=== PATIENT | female | born 1975 | race Caucasian/White ===

== ENCOUNTER 2024-01-17 13:19 | Outpatient (CLI) | payer MEDICARE, MEDICAID ==
--- NOTE | 2024-01-17 15:44 | XRAY Report ---
PROCEDURE: Chest 2V INDICATIONS: COUGH TECHNIQUE: 2 views of the chest were acquired. COMPARISON: None. FINDINGS: Surgical changes and devices: None. Lungs and pleura: No pleural effusions or pneumothorax. Lungs are clear. Mediastinum: Mediastinal contours appear normal. Heart size is normal. Bones and chest wall: No suspicious bony lesions. Overlying soft tissues appear unremarkable. IMPRESSION: No acute cardiopulmonary process. Reviewed by: Manisha Thorpe MD on 01/17/2024 3:42 PM PST Approved by: Manisha Thorpe MD on 01/17/2024 3:42 PM PST Station ID: [id number]
== END 2024-01-17 23:59 | disposition home or self-care (01) ==
LOC: DI.N 13:19
PROVIDERS: ATTEND Family Medicine
DX: R05.9 Cough, unspecified (principal)

== ENCOUNTER 2024-01-18 02:20 | Outpatient (CLI) | payer MEDICARE, MEDICAID | END 2024-01-18 02:21 | disposition critical access hospital (66) | LOC: EMS 02:20 | DX: R45.851 Suicidal ideations (principal) | CPT/HCPCS: A0425; A0429; A0999 ==

== ENCOUNTER 2024-01-18 02:38 | Emergency (ER) | payer MEDICARE, MEDICAID ==
[2024-01-18 03:09] VITALS: BP 145/104; O2SAT 98
[2024-01-18 03:36] LABS: BILIRUBIN,URINE NEGATIVE (NEGATIVE); GLUCOSE, URINE (UA) NEGATIVE (NEGATIVE); KETONES,URINE (UA) NEGATIVE (NEGATIVE); LEUKOCYTE ESTERASE, URINE NEGATIVE (NEGATIVE); NITRITE,URINE NEGATIVE (NEGATIVE); OCCULT BLOOD,URINE SMALL (NEGATIVE); PROTEIN,URINE NEGATIVE (NEGATIVE); UROBILINOGEN,URINE 0.2 (NORMAL) E.U./dL (NORMAL)
[2024-01-18 03:41] LABS: BASOPHILS % (AUTO) 0.3 %; HCT - HEMATOCRIT 39.7 % (37.0-47.0); HGB - HEMOGLOBIN 13.1 g/dL (12.0-16.0); LYMPHOCYTES # (AUTO) 0.6 10^3/uL (1.5-3.5); LYMPHOCYTES % (AUTO) 9.6 %; MEAN CORPUSCULAR HEMOGLOBIN 31.4 pg (27.0-31.0); MEAN CORPUSCULAR VOLUME 95.2 fL (81.0-99.0); MEAN PLATELET VOLUME 8.2 fL (7.9-10.8); MONOCYTES % (AUTO) 0.5 %; NEUTROPHILS # (AUTO) 5.2 10^3/uL (1.5-6.6); NEUTROPHILS % (AUTO) 89.4 %; PLT - PLATELET COUNT 328 10^3/uL (130-450); RED BLOOD COUNT 4.17 10^6/uL (4.20-5.40); WHITE BLOOD COUNT 5.9 x10^3/uL (4.8-10.8)
[2024-01-18 03:48] LABS: CLARITY,URINE CLEAR (CLEAR)
[2024-01-18 03:49] LABS: BACTERIA,URINE Rare /HPF (None Seen); RBC,URINE 0-5 /HPF (0-5); SQUAMOUS EPITHELIAL CELL,UR FEW Squamous (<= Few); WBC,URINE 0-3 /HPF (0-5)
[2024-01-18 03:50] LABS: AMPHETAMINE SCREEN,URINE NEGATIVE (NEGATIVE); BARBITURATE SCREEN,UR NEGATIVE (NEGATIVE); BENZODIAZEPINES SCREEN, URINE NEGATIVE (NEGATIVE); BUPRENORPHINE SCREEN, URINE NEGATIVE (NEGATIVE); COCAINE SCREEN URINE NEGATIVE (NEGATIVE); METHADONE SCREEN, URINE NEGATIVE (NEGATIVE); METHAMPHETAMINES SCREEN, URINE NEGATIVE (NEGATIVE); OPIATE SCREEN, URINE NEGATIVE (NEGATIVE); OXYCODONE SCREEN, URINE NEGATIVE (NEGATIVE); THC CANNABINOID SCREEN, URINE NEGATIVE (NEGATIVE); TRICYCLIC ANTIDEPRESSANT,URINE NEGATIVE (NEGATIVE)
[2024-01-18 03:50] LABS: HCG UR QUAL NEGATIVE
--- NOTE | 2024-01-18 03:56 | ED Physician Documentation ---
History of Present Illness - Stated complaint Stated Complaint: SI/ETOH - Chief complaint Chief Complaint: MHE - History obtained from History obtained from: Patient - Additonal information Additional information: HPI from patient. Patient has been drinking alcohol (vodka) throughout the day and evening. She tells me she is an alcoholic and suffers from depression. She had a lengthy period of sobriety with brief relapse this past September. Early today she was seen in outpatient clinic for sinusitis, was prescribed a number of medications including Augmentin and an albuterol MDI, and , per her description, it sounds like she also received IM steroid. Shortly after this clinic visit, she began drinking vodka. Tonight she had brief, vague thoughts of self-harm without specific plan. She tells me she never had any intent of self-harm, only vague thoughts. She says she no longer is even having thoughts of suicide. 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 : None HEENT: None Psych: Depression Musculoskeletal: None Derm: None - Past Surgical History Past Surgical History: Yes General: Cholecystectomy, Appendectomy, Gastric surgery Ortho: Other - Allergies Allergies/Adverse Reactions: Allergies Allergy/AdvReac Type Severity Reaction Status Date / Time NSAIDS (Non-Steroidal AdvReac Unknown Verified 01/18/24 03:03 Anti-Inflamma - Social History Does the pt smoke?: Yes Smoking Status: Current every day smoker Does the pt drink ETOH?: Yes ETOH Use: Liquor Does the pt have substance abuse?: Yes Substance Use and Type: Other PD ED PE NORMAL - Vitals Vital signs reviewed: Yes - General General: Alert and oriented X 3, No acute distress, Well developed/nourished - HEENT HEENT: PERRL, EOMI - Cardiac Cardiac: RRR, No murmur - Respiratory Respiratory: No respiratory distress, Clear bilaterally - Abdomen Abdomen: Soft, Non tender - Derm Derm: Normal color, Warm and dry - Neuro Neuro: Alert and oriented X 3 Eye Opening: Spontaneous Motor: Obeys Commands Verbal: Oriented GCS Score: 15 - Psych Psych: Normal mood, Normal affect Results - Vitals Vitals: Oxygen O2 Source Room air - Labs Labs: Laboratory Tests 01/18/24 01/18/24 01/18/24 03:20 03:25 03:35 WBC 5.9 RBC 4.17 L Hgb 13.1 Hct 39.7 MCV 95.2 MCH 31.4 H MCHC 33.0 RDW 13.0 Plt Count 328 MPV 8.2 Neut # (Auto) 5.2 Lymph # (Auto) 0.6 L [place] # (Auto) 0.0 Eos # (Auto) 0.0 Baso # (Auto) 0.0 Absolute Nucleated RBC 0.00 Nucleated RBC % 0.0 Sodium Potassium Chloride Carbon Dioxide Anion Gap BUN Creatinine Estimated GFR (MDRD) Glucose Calcium Total Bilirubin AST ALT Alkaline Phosphatase Total Protein Albumin Globulin Albumin/Globulin Ratio Lipase TSH Urine Color YELLOW Urine Clarity CLEAR Urine pH 6.0 Ur Specific [place] <=1.005 Urine Protein NEGATIVE Urine Glucose (UA) NEGATIVE Urine Ketones NEGATIVE Urine Occult Blood SMALL H Urine Nitrite NEGATIVE Urine Bilirubin NEGATIVE Urine Urobilinogen 0.2 (NORMAL) Ur Leukocyte Esterase NEGATIVE Urine RBC 0-5 Urine WBC 0-3 Ur Squamous Epith Cells FEW Squamous Urine Bacteria Rare Ur Microscopic Review INDICATED Urine Culture Comments NOT INDICATED Urine HCG, Qual NEGATIVE Salicylates Urine Opiates Screen NEGATIVE Ur Buprenorphine Scrn NEGATIVE Ur Oxycodone Screen NEGATIVE Urine Methadone Screen NEGATIVE Acetaminophen Ur Barbiturates Screen NEGATIVE Ur Tricyclics Screen NEGATIVE Ur Phencyclidine Scrn NEGATIVE Ur Amphetamine Screen NEGATIVE U Methamphetamines Scrn NEGATIVE U Benzodiazepines Scrn NEGATIVE Urine Cocaine Screen NEGATIVE U Cannabinoids Screen NEGATIVE Ur Drug Screen Comment CUTOFF CONC BELOW: Ethyl Alcohol 01/18/24 03:35 WBC RBC Hgb Hct MCV MCH MCHC RDW Plt Count MPV Neut # (Auto) Lymph # (Auto) [place] # (Auto) Eos # (Auto) Baso # (Auto) Absolute Nucleated RBC Nucleated RBC % Sodium 142 Potassium 3.8 Chloride 108 Carbon Dioxide 21 Anion Gap 13.0 BUN 7 Creatinine 0.4 L Estimated GFR (MDRD) 169 Glucose 147 H Calcium 9.0 Total Bilirubin 0.2 AST 28 ALT 23 Alkaline Phosphatase 111 Total Protein 7.1 Albumin 4.0 Globulin 3.1 Albumin/Globulin Ratio 1.3 Lipase 46 TSH 0.30 L Urine Color Urine Clarity Urine pH Ur Specific [place] Urine Protein Urine Glucose (UA) Urine Ketones Urine Occult Blood Urine Nitrite Urine Bilirubin Urine Urobilinogen Ur Leukocyte Esterase Urine RBC Urine WBC Ur Squamous Epith Cells Urine Bacteria Ur Microscopic Review Urine Culture Comments Urine HCG, Qual Salicylates < 1.5 Urine Opiates Screen Ur Buprenorphine Scrn Ur Oxycodone Screen Urine Methadone Screen Acetaminophen 0.3 Ur Barbiturates Screen Ur Tricyclics Screen Ur Phencyclidine Scrn Ur Amphetamine Screen U Methamphetamines Scrn U Benzodiazepines Scrn Urine Cocaine Screen U Cannabinoids Screen Ur Drug Screen Comment Ethyl Alcohol 249.8 PD Medical Decision Making - ED course Complexity details: reviewed results, re-evaluated patient, considered differential, d/w patient ED course: Patient is calm, cooperative, polite, conversant, and appropriate. She has good insight into her alcoholism and depression, readily recognizing both of these issues. She says she attends AA meetings on a regular basis. She says there is no alcohol in the house at this point. She is able to contract for safety: states she will call 911 if she feels unsafe at home, able to provide collateral against self-harm (would not want to abandon family nor her pet). She declines , telepsych. I mentioned [facility] as an option if she is seeking inpatient treatment for addiction/alcoholism. No concerning findings on blood tests except a predictably elevated serum etoh (250). Remainder of blood tests including LFTs are unremarkable. Departure - Departure Disposition: Home, Self Care Clinical Impression: Alcoholic intoxication Qualifiers: Complication of substance-induced condition: uncomplicated Qualified Code(s): F10.920 - Alcohol use, unspecified with intoxication, uncomplicated Condition: Good Instructions: ED Alcohol Intoxication Comments: There were no concerning findings on tonight's blood tests except for high blood alcohol level. This should gradually decrease as your body processes the alcohol ( provided you do not drink more when you get home). You have indicated to me that you are no longer feeling suicidal/having thoughts of self-harm. If you feel unsafe at any time you should return to the emergency department for reevaluation. If you are desiring inpatient treatment for your alcoholism, one option you can consider is [facility]; this is a stabilization center located in [place]. The contact information is provided below. If you are considering this option, contact [facility] using the phone number below and they will do an [id number] interview to determine if you are appropriate for their facility. [facility] [address] [place] [address] Forms: PCP List Discharge Date/Time: 01/18/24 04:53
[2024-01-18 03:57] LABS: ACETAMINOPHEN 0.3 ug/mL; ALBUMIN/GLOBULIN RATIO 1.3 (1.0-2.2); ALKALINE PHOSPHATASE 111 IU/L (42-121); ALT ALANINE AMINOTRANSFERASE 23 IU/L (10-60); AST ASPARTATE AMINOTRANSFERASE 28 IU/L (10-42); BILIRUBIN,TOTAL 0.2 mg/dL (0.2-1.0); BUN - BLOOD UREA NITROGEN 7 mg/dL (6-20); CARBON DIOXIDE - CO2 21 mmol/L (21-32); CHLORIDE 108 mmol/L (101-111); CREATININE 0.4 mg/dL (0.6-1.3); ETOH - ETHANOL 249.8 mg/dL; GFR - MDRD 169 (>89); GLUCOSE 147 mg/dL (74-104); LIPASE 46 U/L (11-82); POTASSIUM 3.8 mmol/L (3.5-4.5); SODIUM 142 mmol/L (135-145); TOTAL PROTEIN 7.1 g/dL (6.4-8.9)
[2024-01-18 04:09] LABS: SALICYLATE < 1.5 mg/dL
== END 2024-01-18 04:53 | disposition home or self-care (01) ==
LOC: EDUNIT# → ED 02:38
DX: F10.920 Alcohol use, unspecified with intoxication, uncomplicated (principal); Y90.8 Blood alcohol level of 240 mg/100 ml or more; F17.200 Nicotine dependence, unspecified, uncomplicated; F32.A Depression, unspecified; Z79.899 Other long term (current) drug therapy
CPT/HCPCS: 36415; 80053; 80143; 80306; 81001; 81025; 83690; 84443; 85025; 99283; 99284; G0480; 80179; 81003; 82077; 87086

== ENCOUNTER 2024-01-31 14:42 | Outpatient (CLI) | payer MEDICARE, MEDICAID ==
--- NOTE | 2024-01-31 17:13 | XRAY Report ---
PROCEDURE: Wrist 3+V RT INDICATIONS: RIGHT WRIST PAIN TECHNIQUE: 3 views of the wrist were acquired. COMPARISON: None. FINDINGS: Bones: No fractures or dislocations. Mild right wrist joint osteoarthritic changes are seen more not ably involving first CMC joint and scaphotrapezial joint. No suspicious bony lesions. Soft tissues: No suspicious soft tissue calcifications or masses. IMPRESSION: No acute bony abnormality. Mild right wrist joint osteoarthritis.. Reviewed by: Ritesh Love MD on 01/31/2024 5:12 PM PDT Approved by: Ritesh Love MD on 01/31/2024 5:12 PM PDT Station ID: [id number]
== END 2024-01-31 14:43 | disposition home or self-care (01) ==
LOC: DI 14:42
PROVIDERS: ATTEND Family Medicine
DX: M19.031 Primary osteoarthritis, right wrist (principal)

== ENCOUNTER 2024-04-28 09:12 | Outpatient (CLI) | payer MEDICARE, MEDICAID ==
[2024-04-28 12:16] LABS: THYROID STIMULATING HORMONE 1.12 uIU/mL (0.34-5.60)
[2024-04-28 12:19] LABS: ALBUMIN 4.4 g/dL (3.2-5.5); ALBUMIN/GLOBULIN RATIO 1.5 (1.0-2.2); ALKALINE PHOSPHATASE 68 IU/L (42-121); ALT ALANINE AMINOTRANSFERASE 23 IU/L (10-60); AST ASPARTATE AMINOTRANSFERASE 26 IU/L (10-42); BILIRUBIN,TOTAL 0.5 mg/dL (0.2-1.0); BUN - BLOOD UREA NITROGEN 14 mg/dL (6-20); CALCIUM 9.8 mg/dL (8.5-10.3); CARBON DIOXIDE - CO2 25 mmol/L (21-32); CHLORIDE 106 mmol/L (101-111); CHOLESTEROL 197 mg/dL; CREATININE 0.6 mg/dL (0.6-1.3); GFR - MDRD 105 (>89); GLUCOSE 88 mg/dL (74-104); HDL CHOLESTEROL 66 mg/dL; LDL CHOLESTEROL,CALCULATED 109 mg/dL; LDL/HDL RATIO 1.7 (<4.4); POTASSIUM 4.1 mmol/L (3.5-4.5); SODIUM 138 mmol/L (135-145); TOTAL PROTEIN 7.3 g/dL (6.4-8.9); TRIGLYCERIDES 109 mg/dL (48-352); VLDL CHOLESTEROL 22 mg/dL
[2024-04-28 13:24] LABS: BASOPHILS # (AUTO) 0.1 10^3/uL (0.0-0.1); BASOPHILS % (AUTO) 1.3 %; EOSINOPHILS # (AUTO) 0.2 10^3/uL (0.0-0.7); EOSINOPHILS % (AUTO) 3.8 %; HCT - HEMATOCRIT 43.2 % (37.0-47.0); HGB - HEMOGLOBIN 14.4 g/dL (12.0-16.0); LYMPHOCYTES # (AUTO) 1.7 10^3/uL (1.5-3.5); LYMPHOCYTES % (AUTO) 30.8 %; MEAN CORPUSCULAR HEMOGLOBIN 31.4 pg (27.0-31.0); MEAN CORPUSCULAR HGB CONC 33.3 g/dL (32.0-36.0); MEAN CORPUSCULAR VOLUME 94.3 fL (81.0-99.0); MEAN PLATELET VOLUME 9.4 fL (7.9-10.8); MONOCYTES # (AUTO) 0.5 10^3/uL (0.0-1.0); MONOCYTES % (AUTO) 8.4 %; NEUTROPHILS # (AUTO) 3.1 10^3/uL (1.5-6.6); NEUTROPHILS % (AUTO) 55.3 %; PLT - PLATELET COUNT 396 10^3/uL (130-450); RED BLOOD COUNT 4.58 10^6/uL (4.20-5.40); RED CELL DISTRIBUTION WIDTH 12.3 % (12.0-15.0); WHITE BLOOD COUNT 5.6 x10^3/uL (4.8-10.8)
[2024-04-28 14:04] LABS: ESTIMATED AVERAGE GLUCOSE 117 mg/dL (70-100); HEMOGLOBIN A1c% 5.7 % (4.27-6.07)
== END 2024-04-28 09:13 | disposition home or self-care (01) ==
LOC: LAB.N 09:12
DX: Z00.00 Encounter for general adult medical examination without abnormal findings (principal)
CPT/HCPCS: 36415; 80053; 80061; 83036; 83721; 84443; 85025

== ENCOUNTER 2024-06-23 08:00 | Outpatient (CLI) | payer MEDICARE, MEDICAID | END 2024-06-23 23:59 | disposition home or self-care (01) | LOC: LAB.WCP 08:00 | DX: R35.0 Frequency of micturition (principal) | CPT/HCPCS: 87086; 87181 ==

== ENCOUNTER 2024-06-27 20:18 | Outpatient (CLI) | payer MEDICARE, MEDICAID | END 2024-06-27 20:19 | disposition critical access hospital (66) | LOC: EMS 20:18 | DX: R50.9 Fever, unspecified (principal); R10.84 Generalized abdominal pain | CPT/HCPCS: A0425; A0429 ==

== ENCOUNTER 2024-06-27 20:26 | Emergency (ER) | payer MEDICARE, MEDICAID ==
[2024-06-27 20:45] VITALS: BP 127/68; O2SAT 98
== END 2024-06-27 20:55 | disposition left against medical advice (07) ==
LOC: EDUNIT# → ED 20:26
DX: R10.9 Unspecified abdominal pain (principal); Z53.21 Procedure and treatment not carried out due to patient leaving prior to being seen by health care provider

== ENCOUNTER 2024-08-04 09:51 | Emergency (ER) | payer MEDICARE, MEDICAID ==
[2024-08-04 10:09] VITALS: BP 159/83; O2SAT 100
[2024-08-04 10:21] LABS: BILIRUBIN,URINE NEGATIVE (NEGATIVE); GLUCOSE, URINE (UA) NEGATIVE (NEGATIVE); KETONES,URINE (UA) TRACE mg/dL (NEGATIVE); LEUKOCYTE ESTERASE, URINE SMALL (NEGATIVE); NITRITE,URINE NEGATIVE (NEGATIVE); OCCULT BLOOD,URINE NEGATIVE (NEGATIVE); PROTEIN,URINE NEGATIVE (NEGATIVE); UROBILINOGEN,URINE 0.2 (NORMAL) E.U./dL (NORMAL)
[2024-08-04 10:23] LABS: CLARITY,URINE HAZY (CLEAR)
[2024-08-04 10:28] LABS: HCG UR QUAL NEGATIVE
[2024-08-04 10:32] LABS: WBC,URINE >25 /HPF (0-5)
[2024-08-04 10:33] LABS: BACTERIA,URINE Many /HPF (None Seen); RBC,URINE 0-5 /HPF (0-5); SQUAMOUS EPITHELIAL CELL,UR MANY Squamous (<= Few)
--- NOTE | 2024-08-04 10:34 | ED Physician Documentation ---
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 She is felt warm. No measured fevers though. 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 : Chronic bladder infection, Kidney stones HEENT: None Psych: Depression, Anxiety Musculoskeletal: Osteoarthritis, Osteoporosis Derm: None - Past Surgical History Past Surgical History: Yes General: Cholecystectomy, Appendectomy, Gastric surgery Ortho: Other - Present Medications Home Medications: Ambulatory Orders Medication Instructions Recorded Confirmed Acetaminophen/Cod 300/30 [Tylenol 1 - 2 tab PO ONCE PRN #15 tablet 08/04/24 #3] Ciprofloxacin HCl [Cipro] 500 mg PO BID #20 tablet 08/04/24 - Allergies Allergies/Adverse Reactions: Allergies Allergy/AdvReac Type Severity Reaction Status Date / Time acetaminophen [From Vicodin] AdvReac Unknown Verified 08/04/24 09:55 hydrocodone [From Vicodin] AdvReac Unknown Verified 08/04/24 09:55 NSAIDS (Non-Steroidal AdvReac Unknown Verified 08/04/24 09:55 Anti-Inflamma - Social History Does the pt smoke?: No Smoking Status: Former smoker Does the pt drink ETOH?: No Does the pt have substance abuse?: No - Immunizations Immunizations are current?: Yes - POLST Patient has POLST: No PD ED PE NORMAL - Vitals Vital signs reviewed: Yes - General General: Alert and oriented X 3, No acute distress - Cardiac Cardiac: RRR, No murmur - Respiratory Respiratory: No respiratory distress, Clear bilaterally - Abdomen Abdomen: Normal bowel sounds, Soft, Non tender - Back Back: Other (Tender over the left flank) - Neuro Neuro: Alert and oriented X 3, Normal speech Results - Vitals Vitals: Vital Signs - 24 hr 08/04/24 09:55 Temperature 36 C L Heart Rate 65 Respiratory 16 Rate Blood Pressure 159/83 H O2 Saturation 100 Oxygen O2 Source Room air - Labs Labs: Laboratory Tests 08/04/24 10:05 Urine Color YELLOW Urine Clarity HAZY Urine pH 6.0 Ur Specific [place] >=1.030 H Urine Protein NEGATIVE Urine Glucose (UA) NEGATIVE Urine Ketones TRACE Urine Occult Blood NEGATIVE Urine Nitrite NEGATIVE Urine Bilirubin NEGATIVE Urine Urobilinogen 0.2 (NORMAL) Ur Leukocyte Esterase SMALL H Urine RBC 0-5 Urine WBC >25 H Ur Squamous Epith Cells MANY Squamous H Urine Bacteria Many H Ur Microscopic Review INDICATED Urine Culture Comments NOT INDICATED Urine HCG, Qual NEGATIVE PD Medical Decision Making - ED course ED course: She presents with symptoms that sound like pyelonephritis with positive urinalysis. He was can contaminated but I think this is true positive so sent for culture as well. Started on Cipro and she needed some pain medication. Departure - Departure Disposition: 01 Home, Self Care Clinical Impression: Pyelonephritis Condition: Good Record reviewed to determine appropriate education?: Yes Instructions: ED Kidney Infec Female Prescriptions: Ciprofloxacin HCl [Cipro] 500 mg PO BID #20 tablet Acetaminophen/Cod 300/30 [Tylenol #3] 1 - 2 tab PO ONCE PRN #15 tablet PRN Reason: PAIN Comments: I sent your prescription electronically to the [facility] in [place]. Return if you worsen, drink plenty of fluids. Follow-up with your primary care physician for recheck. We will do a urine culture and call you if it is a resistant organism in the next few days. I am prescribing a short course of narcotic pain medication for you. These are potentially dangerous and addictive medications that should be used carefully. These medications may constipate you. Take an [id number] stool softener (docusate) twice daily with plenty of water while taking these medications. If you go 24 hours without a bowel movement, take [id number] miralax, per package instructions. Do not drink or drive while taking these medications. If you received narcotic or sedating medications while in the emergency department, do not drive for 24 hours. Store this medication in a safe, secure place and out of reach of children. It is a violation of federal law to give or sell this medication to another person or to use in a manner other than prescribed. The ED will not refill narcotic prescriptions, including prescriptions lost or stolen. To dispose of unwanted medications: 1. [facility]'s Office provides a drop box for medication in pill form only (no liquids) 8:00 am to 4:30 p.m. Saturday-Saturday in the lobby of the [facility], [address] Empty pills into ziplock bag before disposal. Call [phone] for information. 2.[facility] is a free service available to all [facility] residents. Go to [email or web address] Note that many narcotic pain relievers also contain Tylenol/acetaminophen. Please ensure that your total dose of acetaminophen from all sources does not exceed 3 g (3000 mg) per day. Discharge Date/Time: 08/04/24 10:50
[2024-08-04] MEDS: ACETAMINOPHEN/CODEINE 300 MG/30 MG TABLET PO STA (10:41)
[2024-08-04] MEDS: CIPROFLOXACIN 250 MG TABLET PO STA (10:41)
== END 2024-08-04 10:50 | disposition home or self-care (01) ==
LOC: ED 09:51
DX: N12 Tubulo-interstitial nephritis, not specified as acute or chronic (principal); Z87.891 Personal history of nicotine dependence
CPT/HCPCS: 81001; 81025; 87086; 99283; A9270; 81003